=== PATIENT | male | born 1990 | race Caucasian/White ===

== ENCOUNTER 2018-05-03 12:49 | Emergency (ER) | payer MEDICAID, OTHER, SELFPAY ==
[~2018-05-03] VITALS: Ht 162.6 cm; Wt 80.0 kg
[2018-05-03] MEDS ORDERED: LIDOCAINE GEL 2%, 5ML ONE ×2 (13:21→14:05)
[2018-05-03] MEDS ORDERED: DIPH,PERTUSS(ACELL),TET VAC/PF 0.5 ML IM-VACC ONE ×2 (13:30)
[2018-05-03] MEDS ORDERED: METHOCARBAMOL 750 MG TABLET PO ONE (13:30)
[2018-05-03] MEDS ORDERED: LIDOCAINE 2% VISCOUS 15 ML UDC MM ONE (13:30)
[2018-05-03] MEDS ORDERED: METHOCARBAMOL 750 MG TABLET ONE (13:30)
[2018-05-03] MEDS ORDERED: KETOROLAC 30 MG/1 ML IM ONE (13:30)
[2018-05-03] MEDS ORDERED: KETOROLAC 30 MG/1 ML ONE (13:30)
[2018-05-03] MEDS ORDERED: OXYcodone/APAP 5/325MG TABLET ONE (14:14)
[2018-05-03] MEDS ORDERED: OXYcodone/APAP 5/325MG TABLET PO ONE (14:30)
[2018-05-03] MEDS ORDERED: L.E.T SOLUTION TP ONE ×2 (14:55→15:30)
[2018-05-03] MEDS ORDERED: BACITRACIN ZINC OINT 500U/GM, 0.9 GM ONE (15:28)
[2018-05-03] MEDS ORDERED: CETACAINE 50ML TP ONE (16:00)
[2018-05-03 16:31] VITALS: BP 145/89
== END 2018-05-03 16:33 | disposition home or self-care (01) ==
LOC: EDBD → ED 13:35
DX: S40.011A Contusion of right shoulder, initial encounter (principal); S50.311A Abrasion of right elbow, initial encounter; S50.811A Abrasion of right forearm, initial encounter; S80.211A Abrasion, right knee, initial encounter; V19.3XXA Pedal cyclist (driver) (passenger) injured in unspecified nontraffic accident, initial encounter; Y93.55 Activity, bike riding; Y92.488 Other paved roadways as the place of occurrence of the external cause; Y99.8 Other external cause status
CPT/HCPCS: 72050; 73030; 73564; 90471; 90715; 96372; 99284; J1885

== ENCOUNTER 2018-05-05 10:47 | Emergency (ER) | payer SELFPAY ==
[~2018-05-05] VITALS: Ht 175.3 cm; Wt 76.5 kg
[2018-05-05 10:53] VITALS: BP 143/89
[2018-05-05] MEDS ORDERED: BACITRACIN ZINC OINT 500U/GM, 0.9 GM ONE (11:33)
[2018-05-05] MEDS ORDERED: LIDOCAINE GEL 2%, 5ML ONE ×2 (11:42)
[2018-05-05] MEDS ORDERED: LIDOCAINE 2% VISCOUS 15 ML UDC MM ONE (12:00)
== END 2018-05-05 11:18 | disposition home or self-care (01) ==
LOC: EDBD 10:47 → ED 11:12
DX: Z48.01 Encounter for change or removal of surgical wound dressing (principal); F17.200 Nicotine dependence, unspecified, uncomplicated
CPT/HCPCS: 99283